=== PATIENT | female | born 1995 | race Two or more races ===

== ENCOUNTER 2019-10-21 22:00 | Emergency (ER) | payer OTHER ==
[~2019-10-21] VITALS: Ht 167.6 cm; Wt 59.0 kg
[2019-10-21 22:19] VITALS: Ht 167.6 cm; Wt 59.0 kg
[2019-10-21 23:23] LABS: BASOPHIL % 0.5 % (0-2); PLATELET COUNT 241 x10^3mcL (130-400); RED CELL DISTRIBUTION WIDTH 13.8 % (11.5-14.5)
[2019-10-22 00:01] VITALS: BP 121/74
== END 2019-10-22 00:01 | disposition home or self-care (01) ==
LOC: ED 22:00
PROVIDERS: Emergency Medicine
DX: N93.8 Other specified abnormal uterine and vaginal bleeding (principal); M25.532 Pain in left wrist; W18.30XA Fall on same level, unspecified, initial encounter; Y93.89 Activity, other specified; Y92.89 Other specified places as the place of occurrence of the external cause; Y99.8 Other external cause status
CPT/HCPCS: 36415; Q0092